=== PATIENT | male | born 1960 | race African-American/Black ===

== ENCOUNTER 2022-06-21 09:58 | Emergency (ER) | payer OTHER ==
[~2022-06-21] VITALS: Ht 182.9 cm; Wt 99.8 kg
--- NOTE | 2022-06-21 10:19 | NUR ---
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
--- NOTE | 2022-06-21 10:29 | NUR ---
IV PLACED. L AC 20G
--- NOTE | 2022-06-21 10:34 | NUR ---
URINE SAMPLE OBTAINED Addendum: 06/21/22 at 1034 by SAM SENT TO LAB
--- NOTE | 2022-06-21 10:35 | NUR ---
DR BENAVIDES AT BEDSIDE
[2022-06-21] MEDS ORDERED: KETOROLAC TROMETHAMINE INJ 30 MG/ML VIAL ONE (10:40)
[2022-06-21 10:46] LABS: BASOPHILS % (AUTO) 0.4 % (0.0-2.0); HEMATOCRIT 42 % (39-51); HEMOGLOBIN 13.8 g/dL (13.5-17.5); LYMPHOCYTES # (AUTO) 1.1 K/uL (0.8-4.8); LYMPHOCYTES % (AUTO) 11.5 % (20.0-44.0); MEAN CORPUSCULAR HGB CONC 33 g/dl (31.0-36.0); MEAN CORPUSCULAR VOLUME 90 fL (80-96); MONOCYTES # (AUTO) 0.4 K/uL (0.1-1.30); MONOCYTES % (AUTO) 4.2 % (2.0-12.0); NEUTROPHILS # (AUTO) 8.4 K/uL (1.8-8.9); NEUTROPHILS % (AUTO) 83.9 % (43.0-81.0); PLATELET COUNT (AUTO) 374 K/uL (150-450); RED BLOOD CELL COUNT(AUTO) 4.71 MIL/uL (4.5-6.0)
--- NOTE | 2022-06-21 10:49 | NUR ---
PATIENT TAKEN TO CT BY EMILY [facility]IA [facility]
[2022-06-21 10:50] LABS: CREATININE 1.7 mg/dL (0.6-1.3); POTASSIUM 4.8 mmol/L (3.5-5.1)
[2022-06-21] MEDS ORDERED: KETOROLAC TROMETHAMINE INJ 30 MG/ML VIAL IV ONE (11:00)
[2022-06-21] MEDS ORDERED: IV NS 0.9% 1,000 ML IV ONE (11:00)
--- NOTE | 2022-06-21 11:02 | NUR ---
PATIENT RETURNED FROM CT VIA [facility]
[2022-06-21 11:07] LABS: BILIRUBIN,URINE NEGATIVE (NEGATIVE); COLOR,URINE YELLOW (YELLOW); LEUKOCYTE ESTERASE ,URINE NEGATIVE (NEGATIVE); NITRITE, URINE NEGATIVE (NEGATIVE); PROTEIN,URINE NEGATIVE (NEGATIVE); UGLUCOSE NEGATIVE (NEGATIVE); UROBILINOGEN,URINE 0.2 EU/dL (0.2)
[2022-06-21 11:11] LABS: ALBUMIN 3.8 g/dL (3.4-5.0); BILIRUBIN,DIRECT 0.1 mg/dL (0.0-0.2); BILIRUBIN,TOTAL 0.4 mg/dL (0.2-1.0); TOTAL PROTEIN, SERUM 7.8 g/dL (6.4-8.2)
--- NOTE | 2022-06-21 11:44 | NUR ---
DR BENAVIDES AT BEDSIDE
[2022-06-21 11:50] LABS: RBC,URINE 21-50 /HPF (0-2); WBC,URINE 0-2 /HPF (0-3)
[2022-06-21 11:51] LABS: BACTERIA,URINE Few /HPF (None Seen); SQUAMOUS EPITHELIAL CELL,UR Few /HPF (None Seen)
[2022-06-21] MEDS ORDERED: IBUP-1953 PO (11:55)
[2022-06-21] MEDS ORDERED: TAMS-12 PO (11:55)
[2022-06-21] MEDS ORDERED: ONDA4TAB5 PO (11:55)
[2022-06-21 12:14] VITALS: BP 128/89
--- NOTE | 2022-06-21 12:14 | NUR ---
IV removed. Catheter intact and site benign. Pressure and 4x4 applied to site. No bleeding noted.Patient discharged to home in stable condition. Written and verbal after care instructions given. Patient verbalizes understanding of instruction.
== END 2022-06-21 12:13 | disposition home or self-care (01) ==
LOC: ER 10:08
DX: N20.0 Calculus of kidney (principal); R10.31 Right lower quadrant pain
CPT/HCPCS: 99285; 74176; 96374; 96361; 85025; 80048; 83690; 80076; 81001; 36415; J1885; J7030